=== PATIENT | female | born 1960 ===

== ENCOUNTER 2022-03-06 10:45 | Outpatient (REF) | payer OTHER, SELFPAY ==
[2022-03-06 14:30] LABS: Hematocrit 28.3 % (37.0-47.0); Hemoglobin 9.1 g/dl (12.0-16.0); Mean Corpuscular HGB Conc 32.2 g/dl (31.0-35.0); Mean Corpuscular Hemoglobin 29.8 pg (27.0-33.0); Mean Corpuscular Volume 92.8 fL (80.0-98.0); Mean Platelet Volume 13.3 fL (9.4-12.3); Platelet Count 358 X10*3/uL (160-400); Red Blood Count 3.05 X10*6/uL (4.20-5.50); Red Cell Distribution Width 13.2 % (11.0-16.0); White Blood Count 12.7 X10*3/uL (4.8-10.8)
[2022-03-06 14:34] LABS: Alanine Aminotransferase 14 U/L (0-31); Albumin Level 3.5 g/dL (3.5-5.0); Alkaline Phosphatase 86 U/L (39-117); Anion Gap 18 (12-20); Aspartate Amino Transferase 16 U/L (5-31); Bilirubin Total 0.5 mg/dL (0.0-1.0); Blood Urea Nitrogen 11 mg/dL (9-16); Calcium 9.5 mg/dL (8.4-10.2); Carbon Dioxide 22 mmol/L (22-29); Chloride 103 mmol/L (96-108); Cholesterol 125 mg/dL; Estimated Glomerular Filt Rate > 60; Glucose Fasting 107 mg/dL (60-99); HDL Cholesterol 38 mg/dL; LDL Cholesterol Calculated 63 mg/dl; Magnesium 1.8 mg/dL (1.6-2.6); Potassium 4.7 mmol/L (3.3-5.1); Sodium 138 mmol/L (135-145); Total Protein 6.9 g/dL (6.5-8.0); Triglycerides 122 mg/dL
[2022-03-11 16:21] LABS: Vitamin D 25-OH, D2 <4 ng/mL; Vitamin D 25-OH, D3 33 ng/mL; Vitamin D 25-OH, Total 33 ng/mL (30-100)
== END 2022-03-06 10:46 | disposition home or self-care (01) ==
LOC: HO.WFDLDS 10:45
PROVIDERS: Visit Provider Hospitalist
DX: Z00.00 Encounter for general adult medical examination without abnormal findings (principal); R79.0 Abnormal level of blood mineral; S91.301A Unspecified open wound, right foot, initial encounter
CPT/HCPCS: 36415; 80053; 80061; 82306; 83735; 84443; 85027

== ENCOUNTER 2023-07-22 15:33 | Outpatient (AMB) | payer OTHER, SELFPAY ==
--- NOTE | 2023-07-22 15:43 | A.OFFPC_ITS ---
Vital Signs 07/22/23 15:45 Height 5 ft 6.5 in Weight 211 lb BMI 33.5 BP 160/80 H Blood Pressure Location Rt brachial Position Sitting Respiration 13 Pulse 82 Pulse Source Pulse Oximeter Pulse Oximetry (%) 97 Intake Visit Reasons: Physical exam Intake Note: Patient is here to have her physical. Patient reports her blood pressure is elevated due to being at the doctors. Patient would like to discuss being on the low dose aspirin and the cholesterol medication. Patient would like to ask for a refills on her medication as she is traveling for over 2 months and she would like to be able to refill her meds in the other location. Cardiovascular Radiologic Technologist Required: No Accompanied by: Self / Same As Patient Allergies No Known Allergies Allergy (Verified 07/22/23 15:53) Tobacco use date assessed: 07/22/23 Dental Screening Dental Screen Date: 07/22/23 Did you have a dental visit in the last 12 months?: No Did you have a dental problem in the last 6 months where you did not have access to dental care?: No Was dental information given to patient?: Patient has dentist HPI Physical exam HPI Details 62 y/o female presents for a CPE with f/ u labs and health maintenance. Transfer of Care Prior PCP:?SV Last office visit/CPE: Acute issue(s): HTN: Blood pressure today is 160/80. She is on amlodipine 10mg, labetalol 400mg b.i.d. Patient reports her blood pressure is elevated due to being at the doctors. She states she checks her blood pressure at home and has been fine. PMHx: HTN, HLD, Transmetatarsal amputation of foot Hx of smoking. Quit February 2022. Does not remember last mammogram - has been more than a year. She states she has never had a colonoscopy. [facility] Medical History BP (high blood pressure) Social History (Updated 07/22/23 @ 16:01 by Keira Holder CMA) Household Members: Spouse Housing: House Alcohol intake: current Comment: socially Patient Tobacco Use Status: Former Tobacco user e-Cigarette/Vaping Use: Never Used Second Hand Smoke Exposure: No service: No Current occupational status: employed Current occupation: [employer] Current occupational exposures/hazards: No Sexual orientation: Unable to collect Gender identity: Unable to collect Cognitive needs: No Hearing needs: No Vision needs: No Questionnaire PHQ-9 Over the last 2 weeks, how often have you been bothered by any of the following problems? 1. Little interest or pleasure in doing things: not at all 2. Feeling down, depressed, or hopeless: not at all 3. Trouble falling or staying asleep, or sleeping too much: not at all 4. Feeling tired or having little energy: not at all 5. Poor appetite or overeating: not at all 6. Feeling bad about yourself - or that you are a failure or have let yourself or your family down: not at all 7. Trouble concentrating on things, such as reading the newspaper or watching television: not at all 8. Moving or speaking so slowly that other people could have noticed. Or the opposite - being so fidgety or restless that you have been moving around a lot more than usual: not at all 9. Thoughts that you would be better off or of hurting yourself in some way: not at all Total score: 0 Depression Screening Interpretation: Negative Depression Screening Done: Yes 37110 - PHQ-9 Billing: Yes Source: Developed by Drs. Danielito Forbes, Liza Santos, Perry Samano and colleagues, with an educational erin from [employer]. Thrive Questionnaire Date Thrive assessed: 07/22/23 I am a: Patient What is your living situation today?: I have a steady place to live Within the past 12 months, did the food you bought not last and you didn't have the money to get more?: Never true Within the past 12 months, did you worry whether your food would run out before you got money to buy more?: Never true Do you have trouble paying for medicines?: No Do you have trouble getting transportation to medical appointments?: No Do you have trouble paying your heating and electricity bill?: No Do you have trouble taking care of your child, family member or friend?: No Do you have trouble with day-to-day activities such as bathing, preparing meals, shopping, managing finances, etc.?: No Are you currently unemployed and looking for a job?: No Are you interested in more education?: No Please select the resources that you would like help with: None Currently or been in a relationship where the following occur: no concerns reported AUDIT C Alcohol Use Questionnaire (AUDIT-C) 1. How often do you have a drink containing alcohol?: Never 3. How often do you have six or more drinks on one occasion?: Never Total Score: 0 RILEY-7 AMB Questionnaire RILEY-7 Date RILEY - 7 assessed: 07/22/23 Feeling nervous, anxious, or on edge: 0 = Not at all Not being able to stop or control worryin = Not at all Worrying too much about different things: 0 = Not at all Trouble relaxin = Not at all Being so restless that it is hard to sit still: 0 = Not at all Becoming easily annoyed or irritable: 0 = Not at all Feeling afraid as if something awful might happen: 0 = Not at all Total RILEY-7 score (0-4 normal; 5-9 mild; 10-14 moderate; 15-21 severe): 0 Source: Developed by Drs. Danielito Forbes, Liza Santos, Perry Samano and colleagues, with an educational erin from [employer]. RILEY-7 Assessment Billing RILEY-7 Assessment Tool: RILEY-7 Assessment 21461 Review of Systems Const Denies chills, Denies fatigue, Denies fever(s), Denies headache(s) and Denies weakness Eyes Denies change in vision ENT Denies dizziness, Denies headache(s), Denies hearing loss, Denies nasal congestion, Denies sinus pain, Denies sinus pressure and Denies sore throat Card Denies chest pain, Denies lightheadedness, Denies dyspnea and Denies other (pal pitations) Resp Denies cough, Denies dyspnea and Denies wheezing GI Denies abdominal pain, Denies melena, Denies hematochezia, Denies change in bowel habits, Denies dyspepsia and Denies nausea Denies hematuria and Denies dysuria Musc Denies abnormal gait, Denies myalgias, Denies arthralgias, Denies numbness and Denies tingling Skin/Breast Denies rash, Denies unusual bruising and Denies wounds Neuro Denies abnormal gait, Denies dizziness, Denies headache(s), Denies memory loss, Denies numbness, Denies Sensory deficit (Neuro), Denies tingling and Denies weakness Psych Denies anxiety, Denies depression and Denies memory loss Endo Denies cold intolerance, Denies fatigue, Denies heat intolerance, Denies polydipsia and Denies polyuria Christiano/Lymph Denies easy bleeding and Denies easy bruising Aller/Immun Denies wheezing Physical exam (Primary Care) Vital Signs: Last Vital Signs Pulse 82 07/22/23 15:45 Resp 13 07/22/23 15:45 BP 160/80 H 07/22/23 15:45 Pulse Ox 97 07/22/23 15:45 BMI result Body Mass Index 33.5 Tobacco/Smoking Status: Tobacco use Status Tobacco use date assessed 07/22/23 07/22/23 15:57 Patient Tobacco Use Status Former Tobacco user 07/22/23 16:01 e-Cigarette/Vaping Use Never Used 07/22/23 16:01 Depression Screening Interpretation: Negative Currently or been in a relationship where the following occur: no concerns reported Const General: no acute distress, well developed, alert and awake Nutritional Appearance: obese Orientation/consciousness: patient oriented x3 HENMT Head: Yes normocephalic and Yes atraumatic Ears: hearing grossly normal bilaterally and TM's normal bilaterally General nose exam: Normal external nose present and Normal nares present Mouth: Normal oral and palatal mucosa present and moist mucous membranes Teeth and gingiva: dentition normal Throat: Yes posterior oropharynx normal Eyes General: appearance normal, both eyes and all related structures Pupils: Equal, round and reactive pupils present and Pupil accommodation reflex normal EOM: EOMs intact bilaterally Neck Neck: Yes normal visual inspection, Yes no lymphadenopathy and Yes trachea midline Thyroid: Thyroid normal Carotids: no bruits Lymphatic: no lymphadenopathy noted Chest Chest palpation & inspection: normal inspection of the chest Resp Other: Coarse breath sounds Effort & Inspection: normal respiratory effort Auscultation: clear to auscultation bilaterally Cardio Rate: regular rate Rhythm: regular rhythm Heart sounds: S1 normal heart sound present, S2 normal heart sound present, no gallops, Murmur heart sound present (3/6 systolic murmur heard over the aortic region) and no rubs Bruits: no abdominal aortic bruits and no carotid bruits GI Palpation (GI): No Abdominal aortic bruit present, Soft to palpation, nontender, No hepatosplenomegaly present and No Rebound tenderness present Auscultation: normal bowel sounds General: Yes no CVA tenderness Back/Spine/Pelvis Back: no CVA tenderness Cervical Spine: cervical ROM normal and No Cervical spine tenderness Thoracic/Lumbar Spine: thoraco-lumbar ROM normal, No pain with thoraco-lumbar ROM, No thoracic spinal tenderness and No lumbar spinal tenderness Skin Lesions: no lesions Rashes: no rashes Trauma: no lacerations or abrasions Wounds: no wounds Nails: normal Neuro General: patient oriented x3 and No gait normal Cranial nerves: Yes Equal, round and reactive pupils present Cognition (Neuro): normal cognition Gait exam (Neuro): gait abnormal Motor exam (neuro): 5/5 motor strength present throughout Sensory Exam: No Sensory deficit (Neuro) Deep tendon reflexes (DTR's): Right patellar reflex intensity grade: 2+ and Left patellar reflex intensity grade: 2+ Extrem General: Yes normal to inspection and No edema Psych Appearance: grossly normal Affect: normal affect Attitude: cooperative Thought process: Normal thought process present Assessment and Plan Assessment & Plan (1) HTN (hypertension): Code(s): I10 - Essential (primary) hypertension Plan: Blood?pressure?is?high.??Goal?is?less?than?130/80 She?notes?that?her?blood?pressures?fluctuate?but?are?never?low Will?switch?amlodipine?to?amlodipine?hydrochlorothiazide.??Continu e?labetalol?as?prescribed Will?follow-up?in?about?a?month?to?ensure?better?blood?pressure?control (2) History of transmetatarsal amputation of foot: Code(s): Z89.439 - Acquired absence of unspecified foot Plan: Stable Follow-up?with?vascular?surgery?as?recommended Continue?atorvastatin?and?aspirin (3) Hyperlipidemia: Code(s): E78.5 - Hyperlipidemia, unspecified Plan: Continue?atorvastatin (4) Adult general medical exam: Code(s): Z00.00 - Encounter for general adult medical examination without abnormal findings Plan: 62-year-old?female?presents?for?an?extended?exam Encouraged?healthy?diet?with?active?lifestyle?and?plenty?of?exercise?as?tolerate d (5) Heart murmur: Code(s): R01.1 - Cardiac murmur, unspecified Plan: 3/6?systolic?murmur?which?is?known?to?patient's?since?childhood. 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 Will?readdress (8) Breast cancer screening by mammogram: Code(s): Z12.31 - Encounter for screening mammogram for malignant neoplasm of breast Plan: Has?not?had?a?mammogram?in?over?a?year Ordered She?wants?to?schedule?this?after?her?return?from?vacation?in?a?few?months. We?can?follow-up?at?a?subsequent?visit Coding Level of Care Code Est Pt Level 3 (84953) Est Pt Prev Care 40-64y(84407) Diagnoses HTN (hypertension) I10 History of transmetatarsal amputation of foot Z89.439 Hyperlipidemia E78.5 Adult general medical exam Z00.00 Heart murmur R01.1 Swelling of lower extremity M79.89 Screening for colon cancer Z12.11 Breast cancer screening by mammogram Z12.31 Additional Codes RILEY-7 Assessment Billing - RILEY-7 Assessment Tool: RILEY-7 Assessment 20166 ([id number])
[2023-07-22 15:45] VITALS: BP 160/80; PULSE 82; RESP 13; O2SAT 97; BMI 33.5
== END 2023-07-22 16:31 | disposition home or self-care (01) ==
PROVIDERS: PCP Family Medicine; Visit Provider Family Medicine
DX: I10 Essential (primary) hypertension (principal); Z89.439 Acquired absence of unspecified foot; E78.5 Hyperlipidemia, unspecified; Z00.00 Encounter for general adult medical examination without abnormal findings; R01.1 Cardiac murmur, unspecified; M79.89 Other specified soft tissue disorders; Z12.11 Encounter for screening for malignant neoplasm of colon; Z12.31 Encounter for screening mammogram for malignant neoplasm of breast
CPT/HCPCS: 99213; 99396

== ENCOUNTER 2023-07-31 07:26 | Outpatient (REF) | payer OTHER, SELFPAY ==
[2023-07-31 11:43] LABS: MANUAL DIFF FLAG NO
[2023-07-31 11:46] LABS: Appearance Urine Clear; Color Urine Dark Yellow; Glucose Urine UA Negative (Negative); Leukocyte Esterase Urine Negative (Negative); Nitrite Urine Negative (Negative); Urine Blood Negative (Negative); Urine Ketones Negative (Negative); Urine Protein Negative (Neg-Trace)
[2023-07-31 12:07] LABS: Basophils Absolute Auto 0.1 X10*3/uL (0.0-0.2); Basophils Percent Auto 0.8 % (0-2); Eosinophils Absolute Auto 0.2 X10*3/uL (0.0-0.4); Eosinophils Percent Auto 2.8 % (0-4); Hematocrit 37.8 % (37.0-47.0); Hemoglobin 12.7 g/dl (12.0-16.0); Imm Gran Abs Auto 0.04 X10*3/uL (0.00-0.03); Imm Gran Pct Auto 0.5 % (0.0-0.4); Lymphocytes Percent Auto 23.5 % (20-40); Mean Corpuscular HGB Conc 33.6 g/dl (31.0-35.0); Mean Corpuscular Volume 92.2 fL (80.0-98.0); Mean Platelet Volume 12.4 fL (9.4-12.3); Monocytes Absolute Auto 1.1 X10*3/uL (0.1-1.2); Monocytes Percent Auto 13.1 % (2-11); Neutrophils Absolute Auto 5.1 x10*3/uL (2.0-8.3); Neutrophils Percent Auto 59.3 % (45-73); Platelet Count 198 X10*3/uL (160-400); Red Cell Distribution Width 13.1 % (11.0-16.0); White Blood Count 8.6 X10*3/uL (4.8-10.8)
[2023-07-31 13:03] LABS: Creatinine Urine 115.81 mg/dL; Microalbum/Creatinine Ratio Ur 11.2 ug/mg cr (<30)
[2023-07-31 13:25] LABS: Alanine Aminotransferase 31 U/L (0-31); Albumin Level 4.2 g/dL (3.5-5.0); Alkaline Phosphatase 93 U/L (39-117); Anion Gap 12 (12-20); Aspartate Amino Transferase 21 U/L (5-31); Bilirubin Total 0.5 mg/dL (0.0-1.0); Blood Urea Nitrogen 14 mg/dL (9-16); Calcium 9.8 mg/dL (8.4-10.2); Carbon Dioxide 25 mmol/L (22-29); Chloride 108 mmol/L (96-108); Cholesterol 150 mg/dL (<200); Estimated Glomerular Filt Rate > 60; Glucose Fasting 125 mg/dL (60-99); HDL Cholesterol 49 mg/dL (>40); LDL Cholesterol Calculated 77 mg/dL (<100); Potassium 4.2 mmol/L (3.3-5.1); Sodium 141 mmol/L (135-145); Total Protein 7.2 g/dL (6.5-8.0); Triglycerides 122 mg/dL (<150)
[2023-07-31 13:43] LABS: TSH reflex Free T4 1.69 uIU/mL (0.32-4.0); Vitamin D 25-OH Total 37.7 ng/mL (>30)
== END 2023-07-31 07:27 | disposition home or self-care (01) ==
LOC: HO.WFDLDS 07:26
PROVIDERS: Visit Provider Family Medicine
DX: Z00.00 Encounter for general adult medical examination without abnormal findings (principal); E55.9 Vitamin D deficiency, unspecified; I10 Essential (primary) hypertension
CPT/HCPCS: 36415; 80053; 80061; 81003; 82043; 82306; 82570; 84443; 85025

== ENCOUNTER 2023-08-19 15:08 | Outpatient (AMB) | payer OTHER, SELFPAY ==
--- NOTE | 2023-08-19 15:30 | A.OFFPC_ITS ---
Vital Signs 08/19/23 15:33 Height 5 ft 6.5 in Weight 203 lb BMI 32.3 BP 162/88 H Blood Pressure Location Lt brachial Position Sitting Pulse 82 Pulse Source Pulse Oximeter Pulse Oximetry (%) 97 Oxygen Delivery Method Room Air Intake Visit Reasons: f/u hypertension and labs Intake Note: Patient is here for htn, follow up on labs. Patient would like refills on her meds, for her vacation. Allergies No Known Allergies Allergy (Verified 08/19/23 15:37) Tobacco use date assessed: 08/19/23 Dental Screening Dental Screen Date: 08/19/23 Did you have a dental visit in the last 12 months?: No Did you have a dental problem in the last 6 months where you did not have access to dental care?: No Was dental information given to patient?: Patient declined HPI f/u hypertension and labs HPI Details 62 y/o female presents to f/u hypertensi on and labs. Blood pressure today 162/88. She is on hydrochlorothiazide 12.5mg, labetalol 400mg b.i.d, amlodipine 10mg daily. She reports she does not like salty foods. Labs were drawn 07/31/23. Reviewed labs with pt. Triglycerides 122. TC 150. LDL 77. HDL 49. Elevated fasting glucose of 125. [facility] Medical History BP (high blood pressure) Social History (Updated 07/22/23 @ 16:01 by Keira Holder CMA) Household Members: Spouse Housing: House Alcohol intake: current Comment: socially Patient Tobacco Use Status: Former Tobacco user e-Cigarette/Vaping Use: Never Used Second Hand Smoke Exposure: No service: No Current occupational status: employed Current occupation: [employer] Current occupational exposures/hazards: No Sexual orientation: Unable to collect Gender identity: Unable to collect Cognitive needs: No Hearing needs: No Vision needs: No Questionnaire Thrive Questionnaire Date Thrive assessed: 07/22/23 RILEY-7 AMB Questionnaire RILEY-7 Date RILEY - 7 assessed: 07/22/23 Source: Developed by Drs. Danielito Forbes, Liza Santos, Perry Samano and colleagues, with an educational erin from [employer]. Review of Systems Const Denies chills, Denies fatigue, Denies fever(s), Denies headache(s) and Denies weakness ENT Denies dizziness and Denies headache(s) Card Denies dyspnea Resp Denies cough, Denies dyspnea, Denies wheezing and Denies other (shortness of breath) Musc Denies numbness and Denies tingling Neuro Denies dizziness, Denies headache(s), Denies numbness, Denies tingling and Denies weakness Psych Denies anxiety and Denies depression Endo Denies fatigue Aller/Immun Denies wheezing Physical exam (Primary Care) Vital Signs: Last Vital Signs Pulse 82 08/19/23 15:33 BP 162/88 H 08/19/23 15:33 Pulse Ox 97 08/19/23 15:33 Oxygen Delivery Method Room Air 08/19/23 15:33 BMI result Body Mass Index 32.3 Tobacco/Smoking Status: Tobacco use Status Tobacco use date assessed 08/19/23 08/19/23 15:37 Patient Tobacco Use Status Former Tobacco user 08/19/23 15:37 e-Cigarette/Vaping Use Never Used 08/19/23 15:37 Thrive Assessment: Date of Thrive Assessment Date Thrive assessed 07/22/23 08/19/23 15:37 Const General: well developed; No acute distress Nutritional Appearance: well nourished Orientation/consciousness: patient oriented x3 [facility]: Yes normocephalic and Yes atraumatic Eyes General: appearance normal, both eyes and all related structures Pupils: Equal, round and reactive pupils present EOM: EOMs intact bilaterally Resp Effort & Inspection: normal respiratory effort Auscultation: clear to auscultation bilaterally Cardio Rate: regular rate Rhythm: regular rhythm Heart sounds: S1 normal heart sound present, S2 normal heart sound present, no gallops, no murmurs and no rubs Neuro General: patient oriented x3 and gait normal Cranial nerves: Yes Equal, round and reactive pupils present Psych Affect: normal affect Results AMB Hemoglobin A1c AMB Hemoglobin A1c 5.3 % Last Edit by Lyubov Rangel CMA on 08/19/23 16:36 Assessment and Plan Assessment & Plan (1) HTN (hypertension): Code(s): I10 - Essential (primary) hypertension Plan: Blood?pressure?remains?elevated?despite?adding?hydrochlorothiazide?12.5?mg?to?he r?regimen?of?amlodipine?10?mg?daily?and?labetalol?200?mg?b.i.d. If?blood?pressures?are?still?not?improving, would?refer?to?Cardiology?for?help?with?blood?pressure?control. Denies?chest?pain?or?shortness?of?breath Advised?patient?reduce?salt/sodium?in?her?diet (2) Elevated fasting glucose: Code(s): R73.01 - Impaired fasting glucose Plan: Blood?sugars?are?elevated A1c: 5.3% which is withing normal range Likely?some?insulin?resistance Encouraged?diet?lower?in?sugars?and?starches Plan Patient?is?going?on?vacation. 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 Orders: Orders AMB Hemoglobin A1c Today Z13.9 - Encounter for screening, unspecified Medications: Changed From amlodipine 10 mg PO DAILY 30 days 30 tabs 2RF To amlodipine 10 mg PO DAILY 90 days 90 tabs 2RF From atorvastatin 40 mg PO DAILY 30 days 30 tabs 1RF To atorvastatin 40 mg PO DAILY 90 days 90 tabs 1RF From hydrochlorothiazide 12.5 mg PO QAM 30 days 30 tabs 1RF To hydrochlorothiazide 25 mg PO QAM 90 days 90 tabs 1RF From labetalol 400 mg (2 x 200 mg) PO BID 120 tabs 6RF I10 - Essential (primary) hypertension To labetalol 400 mg (2 x 200 mg) PO BID 90 days 360 tabs 6RF I10 - Essential (primary) hypertension Coding Level of Care Code Est Pt Level 3 (96578) Diagnoses HTN (hypertension) I10 Elevated fasting glucose R73.01
[2023-08-19 15:33] VITALS: BP 162/88; PULSE 82; O2SAT 97; BMI 32.3
== END 2023-08-19 16:40 | disposition home or self-care (01) ==
PROVIDERS: PCP Family Medicine; Visit Provider Family Medicine
DX: I10 Essential (primary) hypertension (principal); R73.01 Impaired fasting glucose
CPT/HCPCS: 83036; 99213

== ENCOUNTER 2024-07-22 08:23 | Outpatient (AMB) | payer BC, SELFPAY ==
--- OUTSIDE RECORDS SUMMARY | 2024-07-22 08:34 | XMS_ITS | Continuity of Care Document ---
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 Name Role Phone Jerry Magallon MD Primary Care Physician [phone] Encounter [facility] [place] Date(s): 05/31/24 - 06/30/24 [facility] [address] [place] [address]- Attending Physician: French Lizarraga Admitting Physician: French Lizararga Referring Physician: AdmtrFrench Encounter Type: Triage Allergies, Adverse Reactions, Alerts No Known Allergies Immunizations Given and Recorded Vaccine Date Status Refusal Reason influenza virus vaccine, inactivated 05/24/22 Give n SARS-CoV-2 (COVID-19) Ad26 vaccine 11/25/20 Record ed Problem List Condition Confirmation Course Effective Dates Status Health St atus Informant HTN (hypertension) Confirmed Active Prediabetes Confirmed Active PVD (peripheral vascular disease) Confirmed Active Right foot ulcer Confirmed Active Social History Social History Type Response Tobacco Other: Quit 2021. Sex Sex Representation Female (finding) Patient Care team information Care Team Personnel Name: Jacy Hunter CNM Position: Reference Physician Member Role: Primary Care Nurse Address: [address] [place] [id number]- Telecom: Name: Perla Nunn RN Position: S RN Member Role: Primary Care Nurse Name: Sheryl Ennis RN Position: S RN Member Role: Primary Care Nurse Name: Jerry Magallon MD Position: S Outreach Member Role: PCP Address: [address] [place] [address]- [place] Telecom: Name: Angélica Shook RN Position: [facility] RN Member Role: Primary Care Nurse Name: Elise Khanna Position: [facility] AMB [place] Member Role: Primary Care Nurse Name: Otoniel Mcallister MD Position: [facility] Renal MD Member Role: Lifetime Consulting Physician Address: [address] [place] [address] [id number] [facility] [address] Telecom: Care Team Related Persons Name: ANN BATEMAN Insurance Providers Guarantor name: EDITH Health Plan Information #: 1 Payer: [employer] PPO MVP Member Number: NA Policy Number: NA Group Number: NA Health Plan Information #: 2 Payer: PRIME Member Number: NA Policy Number: NA Group Number: NA
--- NOTE | 2024-07-22 08:38 | A.OFFPC_ITS ---
Vital Signs 07/22/24 08:40 Height 5 ft 6.5 in Weight 220 lb 8 oz BMI 35.1 BP 160/88 H Blood Pressure Location Rt brachial Position Sitting Respiration 16 Pulse 69 Pulse Source Pulse Oximeter Temp 98.0 F Temp Source Oral Pulse Oximetry (%) 97 Oxygen Delivery Method Room Air Intake Visit Reasons: f/u hypertension & b/p Intake Note: patient here for follow up on HTN Procurement Specialist Required: No Is last menstrual period known: No Post menopausal: No Patient : No Allergies No Known Allergies Allergy (Verified 07/22/24 08:40) Tobacco use date assessed: 07/22/24 Fall risk assessment: No Falls in past year Last assessed Fall Risk: 07/22/24 Dental Screening Dental Screen Date: 07/22/24 Did you have a dental visit in the last 12 months?: No Did you have a dental problem in the last 6 months where you did not have access to dental care?: No Was dental information given to patient?: No HPI f/u hypertension & b/p HPI Details 63 y/o female presents to f/u hypertensi on. Wound of foot and continues to f/u with wound clinic for this. Notes it has been taking a long time to heal. She states she is unsure how the wound came about. Blood pressure today 160/88, 69p. She is on labetalol 400mg b.i.d, hydrochlorothiazide 25mg, amlodipine 10mg daily. [facility] Medical History BP (high blood pressure) Social History (Updated 07/22/23 @ 16:01 by Keira Holder CMA) Household Members: Spouse Housing: House Alcohol intake: current Comment: socially Patient Tobacco Use Status: Former Tobacco user e-Cigarette/Vaping Use: Never Used Second Hand Smoke Exposure: No Patient : No service: No Current occupational status: employed Current occupation: [employer] Current occupational exposures/hazards: No Sexual orientation: Unable to collect Gender identity: Unable to collect Cognitive needs: No Hearing needs: No Vision needs: No Questionnaire PHQ-9 Over the last 2 weeks, how often have you been bothered by any of the following problems? 1. Little interest or pleasure in doing things: several days 2. Feeling down, depressed, or hopeless: not at all 3. Trouble falling or staying asleep, or sleeping too much: not at all 4. Feeling tired or having little energy: not at all 5. Poor appetite or overeating: not at all 6. Feeling bad about yourself - or that you are a failure or have let yourself or your family down: not at all 7. Trouble concentrating on things, such as reading the newspaper or watching television: not at all 8. Moving or speaking so slowly that other people could have noticed. Or the opposite - being so fidgety or restless that you have been moving around a lot more than usual: not at all 9. Thoughts that you would be better off or of hurting yourself in some way: not at all Total score: 1 Source: Developed by Drs. Danielito Forbes, Liza Santos, Perry Samano and colleagues, with an educational erin from [employer]. Thrive Questionnaire Date Thrive assessed: 07/15/24 I am a: Patient What is your living situation today?: I choose not to answer this question Within the past 12 months, did the food you bought not last and you didn't have the money to get more?: I choose not to answer this question Within the past 12 months, did you worry whether your food would run out before you got money to buy more?: I choose not to answer this question Do you have trouble paying for medicines?: I choose not to answer this question Do you have trouble getting transportation to medical appointments?: I choose not to answer this question Do you have trouble paying your heating and electricity bill?: I choose not to answer this question Do you have trouble taking care of your child, family member or friend?: I choose not to answer this question Do you have trouble with day-to-day activities such as bathing, preparing meals, shopping, managing finances, etc.?: I choose not to answer this question Are you currently unemployed and looking for a job?: I choose not to answer this question Are you interested in more education?: I choose not to answer this question Please select the resources that you would like help with: None Currently or been in a relationship where the following occur: I choose not to answer THRIVE Score: 0 AUDIT C Alcohol Use Questionnaire (AUDIT-C) 1. How often do you have a drink containing alcohol?: 2-3 times a week 2. How many drinks containing alcohol do you have on a typical day when you are drinking?: 1 or 2 3. How often do you have six or more drinks on one occasion?: Less than monthly Total Score: 4 RILEY-7 AMB Questionnaire RILEY-7 Date RILEY - 7 assessed: 07/22/23 Feeling nervous, anxious, or on edge: 0 = Not at all Not being able to stop or control worryin = Not at all Worrying too much about different things: 0 = Not at all Trouble relaxin = Not at all Being so restless that it is hard to sit still: 0 = Not at all Becoming easily annoyed or irritable: 0 = Not at all Feeling afraid as if something awful might happen: 0 = Not at all Total RILEY-7 score (0-4 normal; 5-9 mild; 10-14 moderate; 15-21 severe): 0 Source: Developed by Drs. Danielito Forbes, Liza Santos, Perry Samano and colleagues, with an educational erin from [employer]. Review of Systems Const Denies chills, Denies fatigue, Denies fever(s), Denies headache(s) and Denies weakness ENT Denies dizziness and Denies headache(s) Card Denies chest pain, Denies lightheadedness, Denies dyspnea and Denies other (Palpitations) Resp Denies cough, Denies dyspnea, Denies wheezing and Denies other ( shortness of breath) Musc Denies numbness and Denies tingling Neuro Denies dizziness, Denies headache(s), Denies numbness, Denies tingling, Denies paresthesias and Denies weakness Psych Denies anxiety and Denies depression Endo Denies fatigue Aller/Immun Denies wheezing Physical exam (Primary Care) Vital Signs: Last Vital Signs Temp 98.0 F 07/22/24 08:40 Pulse 69 07/22/24 08:40 Resp 16 07/22/24 08:40 BP 160/88 H 07/22/24 08:40 Pulse Ox 97 07/22/24 08:40 Oxygen Delivery Method Room Air 07/22/24 08:40 BMI result Body Mass Index 35.1 Tobacco/Smoking Status: Tobacco use Status Tobacco use date assessed 07/22/24 07/22/24 08:46 Patient Tobacco Use Status Former Tobacco user 07/22/24 08:46 e-Cigarette/Vaping Use Never Used 07/22/24 08:46 PHQ-9: PHQ-9 Score PHQ-9: Total score 1 07/22/24 08:55 Thrive Assessment: Date of Thrive Assessment Date Thrive assessed 07/15/24 07/22/24 08:46 Currently or been in a relationship where the following occur: I choose not to answer Const General: no acute distress and well developed Nutritional Appearance: well nourished Orientation/consciousness: patient oriented x3 HENMT Head: Yes normocephalic and Yes atraumatic Eyes General: appearance normal, both eyes and all related structures Pupils: Equal, round and reactive pupils present EOM: EOMs intact bilaterally Resp Effort & Inspection: normal respiratory effort Auscultation: clear to auscultation bilaterally Cardio Rate: regular rate Rhythm: regular rhythm Heart sounds: S1 normal heart sound present, S2 normal heart sound present, no gallops, no murmurs and no rubs Neuro General: patient oriented x3 and gait normal Cranial nerves: Yes Equal, round and reactive pupils present Psych Affect: normal affect Coding Level of Care Code Est Pt Level 3 (10398) Diagnoses HTN (hypertension) I10 Wound of right foot S91.301A Assessment & Plan Assessment & Plan (1) HTN (hypertension): Code(s): I10 - Essential (primary) hypertension Category: Medical Plan: Blood?pressure?still?much?too?high. Patient?notes?systolic?bloo d?pressures?run?130s?to?150s?and?today?systolic?blood?pressure?160 Will?her?continue?amlodipine,?labetalol?hydrochlorothiazide. Adding?lisinopril Checking?labs EKG: ?Normal?sinus?rhythm,?normal?axis,?no?hypertrophy,?no?ST-T-wave?changes. Will?have?return?to?recheck?blood?pressure?and?also?recheck?renal?function?on?li sinopril?as?well?her?other?blood?pressure?medications. (2) Wound of right foot: Code(s): S91.301A - Unspecified open wound, right foot, initial encounter Category: Medical Plan: Followed?by?wound?care Orders: Orders Microalbumin, Random (w Creat) Today I10 - Essential (primary) hypertension TSH reflex Free T4 Today I10 - Essential (primary) hypertension, Z00.00 - Encounter for general adult medical examination without abnormal findings Metanephrines, Plasma Today I10 - Essential (primary) hypertension Basic Metabolic Panel 1 Day I10 - Essential (primary) hypertension, Z00.00 - Encounter for general adult medical examination without abnormal findings Comprehensive Met. Panel Today I10 - Essential (primary) hypertension Medications: New lisinopril 20 mg PO DAILY 90 days 90 tabs 3RF I10 - Essential (primary) hypertension Refilled amlodipine 10 mg PO DAILY 90 days 90 tabs 2RF I10 - Essential (primary) hypertension labetalol 400 mg (2 x 200 mg) PO BID 90 days 360 tabs 6RF I10 - Essential (primary) hypertension atorvastatin 40 mg PO DAILY 90 days 90 tabs 1RF I10 - Essential (primary) hypertension hydrochlorothiazide 25 mg PO QAM 90 days 90 tabs 1RF I10 - Essential (primary) hypertension
[2024-07-22 08:40] VITALS: BP 160/88; PULSE 69; RESP 16; TEMP 36.7; O2SAT 97; BMI 35.1
== END 2024-07-22 09:39 | disposition home or self-care (01) ==
PROVIDERS: PCP Family Medicine; Visit Provider Family Medicine
DX: I10 Essential (primary) hypertension (principal); S91.301A Unspecified open wound, right foot, initial encounter

== ENCOUNTER → 2024-07-22 08:23 | Outpatient (BNVA) | payer BC, SELFPAY | PROVIDERS: PCP Family Medicine; Visit Provider Family Medicine ==

== ENCOUNTER 2024-07-22 09:55 | Outpatient (REF) | payer BC, SELFPAY ==
[2024-07-22 11:45] LABS: Alanine Aminotransferase 44 U/L (0-31); Albumin Level 4.3 g/dL (3.5-5.0); Anion Gap 13 (12-20); Aspartate Amino Transferase 27 U/L (5-31); Bilirubin Total 0.5 mg/dL (0.0-1.0); Blood Urea Nitrogen 13 mg/dL (9-16); Calcium 9.6 mg/dL (8.4-10.2); Carbon Dioxide 26 mmol/L (22-29); Chloride 106 mmol/L (96-108); Estimated Glomerular Filt Rate > 60; Glucose Random 117 mg/dL (60-115); Potassium 3.6 mmol/L (3.3-5.1); Sodium 141 mmol/L (135-145); Total Protein 7.1 g/dL (6.5-8.0)
[2024-07-22 12:08] LABS: TSH reflex Free T4 1.75 uIU/mL (0.32-4.0)
[2024-07-22 12:11] LABS: Creatinine Urine 74.29 mg/dL
[2024-07-22 12:29] LABS: Alkaline Phosphatase 90 U/L (39-117)
== END 2024-07-22 09:56 | disposition home or self-care (01) ==
LOC: HO.WFDLDS 09:55
PROVIDERS: Visit Provider Family Medicine
DX: Z00.00 Encounter for general adult medical examination without abnormal findings (principal); I10 Essential (primary) hypertension
CPT/HCPCS: 36415; 80053; 82043; 82570; 84443